=== PATIENT | female | born 1995 | race Caucasian/White ===

== ENCOUNTER 2023-11-12 17:41 | Observation (INO) | payer OTHER ==
[2023-11-12 17:56] VITALS: O2SAT 100
--- NOTE | 2023-11-12 18:06 | ED Physician Documentation ---
History of Present Illness - Stated complaint Stated Complaint: N/V/MCCLAIN - Chief complaint Chief Complaint: Abd Pain - History obtained from History obtained from: Patient - History of Present Illness Timing: Today Pain level max: 6 Pain level now: 6 - Additonal information Additional information: 28-year-old female states that she is 21 weeks . She is visiting from out of town. She states has had nausea and vomiting since last night. Took Reglan last night without relief. Has had similar symptoms in the past. Patient is a G2, P1. Does not drink alcohol, smoke or use marijuana. Patient does state that her potassium is chronically low. No vaginal bleeding or discharge. She states she does have a right-sided headache, dull, aching. She states similar to her usual migraine headaches. Not sudden onset. No fevers. No chills. No neck or back pain. Review of Systems Constitutional: denies: Fever, Chills Throat: denies: Sore throat Cardiac: denies: Chest pain / pressure, Palpitations Respiratory: denies: Dyspnea, Cough GI: reports: Nausea, Vomiting. denies: Diarrhea, Hematemesis, Bloody / black stool : denies: Dysuria, Frequency, Hesitancy Skin: denies: Rash Musculoskeletal: denies: Neck pain, Back pain Neurologic: denies: Focal weakness, Numbness, Headache PD PAST MEDICAL HISTORY - Past Medical History Past Medical History: No Cardiovascular: None Respiratory: None Neuro: None Endocrine/Autoimmune: None GI: GERD HEAD DOFFER: None : None HEENT: None Psych: None Musculoskeletal: None Derm: None - Past Surgical History Past Surgical History: Yes General: Appendectomy HEENT: Tonsil/Adenoidectomy - Present Medications Home Medications: Ambulatory Orders Medication Instructions Recorded Confirmed Acetaminophen [Tylenol] 1 tab PO DAILY 11/12/23 11/12/23 Metoclopramide [Reglan] 1 tab PO DAILY 11/12/23 11/12/23 - Allergies Allergies/Adverse Reactions: Allergies Allergy/AdvReac Type Severity Reaction Status Date / Time No Known Drug Allergies Allergy Verified 11/12/23 17:49 - Social History Does the pt smoke?: No Smoking Status: Never smoker Does the pt drink ETOH?: No Does the pt have substance abuse?: No - Immunizations Immunizations are current?: Yes - POLST Patient has POLST: No PD ED PE NORMAL - Vitals Vital signs reviewed: Yes - General General: Alert and oriented X 3, No acute distress - HEENT HEENT: Moist mucous membranes - Neck Neck: Supple, no meningeal sign - Cardiac Cardiac: RRR, Strong equal pulses - Respiratory Respiratory: No respiratory distress, Clear bilaterally - Abdomen Abdomen: Soft, Non tender, Non distended - Back Back: No CVA TTP, No spinal TTP - Derm Derm: Warm and dry, No rash - Extremities Extremities: No edema, No calf tenderness / cord - Neuro Neuro: Alert and oriented X 3 - Psych Psych: Normal mood, Normal affect Results - Vitals Vitals: Vital Signs - 24 hr 11/12/23 11/12/23 17:44 19:59 Temperature 36.8 C Heart Rate 100 103 H Respiratory 18 16 Rate Blood Pressure 120/85 H 125/69 O2 Saturation 100 100 Oxygen O2 Source Room air - Labs Labs: Laboratory Tests 11/12/23 11/12/23 11/12/23 18:02 18:02 18:02 WBC 12.8 H RBC 4.89 Hgb 11.7 L Hct 36.7 L MCV 75.1 L MCH 23.9 L MCHC 31.9 L RDW 14.5 Plt Count 375 MPV 10.4 Neut # (Auto) 9.8 H Lymph # (Auto) 2.3 [place] # (Auto) 0.6 Eos # (Auto) 0.0 Baso # (Auto) 0.0 Absolute Nucleated RBC 0.00 Nucleated RBC % 0.0 Sodium 136 Potassium 2.8 L Chloride 102 Carbon Dioxide 20 L Anion Gap 14.0 H BUN 5 L Creatinine 0.7 Estimated GFR (MDRD) 100 Glucose 112 H Calcium 9.3 Phosphorus 1.7 L Magnesium 1.5 L Total Bilirubin 0.5 AST 14 ALT 11 Alkaline Phosphatase 51 Total Protein 7.0 Albumin 3.8 Globulin 3.2 Albumin/Globulin Ratio 1.2 Lipase 50 Urine Color Urine Clarity Urine pH Ur Specific [place] Urine Protein Urine Glucose (UA) Urine Ketones Urine Occult Blood Urine Nitrite Urine Bilirubin Urine Urobilinogen Ur Leukocyte Esterase Ur Microscopic Review Urine Culture Comments 11/12/23 20:06 WBC RBC Hgb Hct MCV MCH MCHC RDW Plt Count MPV Neut # (Auto) Lymph # (Auto) [place] # (Auto) Eos # (Auto) Baso # (Auto) Absolute Nucleated RBC Nucleated RBC % Sodium Potassium Chloride Carbon Dioxide Anion Gap BUN Creatinine Estimated GFR (MDRD) Glucose Calcium Phosphorus Magnesium Total Bilirubin AST ALT Alkaline Phosphatase Total Protein Albumin Globulin Albumin/Globulin Ratio Lipase Urine Color YELLOW Urine Clarity CLEAR Urine pH 8.0 H Ur Specific [place] 1.025 Urine Protein TRACE Urine Glucose (UA) NEGATIVE Urine Ketones >=80 H Urine Occult Blood NEGATIVE Urine Nitrite NEGATIVE Urine Bilirubin NEGATIVE Urine Urobilinogen 0.2 (NORMAL) Ur Leukocyte Esterase NEGATIVE Ur Microscopic Review NOT INDICATED Urine Culture Comments NOT INDICATED PD Medical Decision Making - ED course Complexity details: reviewed results, re-evaluated patient, considered differential, d/w patient ED course: Bedside ultrasound reveals a heart rate of 152 bpm. Images were shown to the patient. Very active movement. 28-year-old female, 2, para 1 presents with vomiting. She has hypokalemia, hypomagnesemia. She was given IV Phenergan, Benadryl and IV Zofran. She attempted to drink water and had more emesis. Was given IV potassium and magnesium. As she cannot tolerate p.o. and does appear dehydrated along with electrolyte abnormalities, discussed the case with OB, Dr. Shrestha, accepts for observation. This document was made in part using voice recognition software. While efforts are made to proofread this document, sound alike and grammatical errors may occur. Departure - Departure Disposition: ED Place in Observation Clinical Impression: Hypokalemia, Hyperemesis arising during , Hypomagnesemia Vomiting Qualifiers: Vomiting type: unspecified Nausea presence: with nausea Qualified Code(s): R11.2 - Nausea with vomiting, unspecified Condition: Stable Forms: PCP List
[2023-11-12 18:20] LABS: BASOPHILS % (AUTO) 0.2 %; EOSINOPHILS % (AUTO) 0.3 %; HCT - HEMATOCRIT 36.7 % (37.0-47.0); HGB - HEMOGLOBIN 11.7 g/dL (12.0-16.0); LYMPHOCYTES # (AUTO) 2.3 10^3/uL (1.5-3.5); LYMPHOCYTES % (AUTO) 18.3 %; MEAN CORPUSCULAR HEMOGLOBIN 23.9 pg (27.0-31.0); MEAN CORPUSCULAR HGB CONC 31.9 g/dL (32.0-36.0); MEAN CORPUSCULAR VOLUME 75.1 fL (81.0-99.0); MEAN PLATELET VOLUME 10.4 fL (7.9-10.8); MONOCYTES # (AUTO) 0.6 10^3/uL (0.0-1.0); MONOCYTES % (AUTO) 4.4 %; NEUTROPHILS # (AUTO) 9.8 10^3/uL (1.5-6.6); NEUTROPHILS % (AUTO) 76.5 %; PLT - PLATELET COUNT 375 10^3/uL (130-450); RED BLOOD COUNT 4.89 10^6/uL (4.20-5.40); RED CELL DISTRIBUTION WIDTH 14.5 % (12.0-15.0); WHITE BLOOD COUNT 12.8 x10^3/uL (4.8-10.8)
[2023-11-12] MEDS ORDERED: PROMETHAZINE 25 MG/1 ML VIAL ONE (18:20)
[2023-11-12] MEDS: SODIUM CHLORIDE 0.9% 1,000 ML IV STA ×2 (18:25→20:45)
[2023-11-12] MEDS: PROMETHAZINE INJ 25 MG in SODIUM CHLORIDE 0.9% 50 ML IV STA (18:25)
[2023-11-12] MEDS: diphenhydrAMINE INJ 50 MG/ML VIAL IVP STA (18:25)
[2023-11-12 18:40] LABS: ALBUMIN 3.8 g/dL (3.2-5.5); ALBUMIN/GLOBULIN RATIO 1.2 (1.0-2.2); BILIRUBIN,TOTAL 0.5 mg/dL (0.2-1.0); CALCIUM 9.3 mg/dL (8.5-10.3); CREATININE 0.7 mg/dL (0.6-1.3); POTASSIUM 2.8 mmol/L (3.5-4.5)
[2023-11-12 19:13] LABS: MAGNESIUM 1.5 mg/dL (1.7-2.3); PHOSPHORUS 1.7 mg/dL (2.5-5.0)
[2023-11-12] MEDS: MAGNESIUM SULFATE 2 GRAM 2 GM/50 ML BAG IV ONE (19:37)
[2023-11-12] MEDS: POTASSIUM BICARB 25 MEQ TABLET PO STA (19:37)
[2023-11-12] MEDS: ONDANSETRON 4 MG/2 ML VIAL IVP STA (20:08)
[2023-11-12 20:12] LABS: BILIRUBIN,URINE NEGATIVE (NEGATIVE); GLUCOSE, URINE (UA) NEGATIVE (NEGATIVE); KETONES,URINE (UA) >=80 mg/dL (NEGATIVE); LEUKOCYTE ESTERASE, URINE NEGATIVE (NEGATIVE); NITRITE,URINE NEGATIVE (NEGATIVE); OCCULT BLOOD,URINE NEGATIVE (NEGATIVE); PROTEIN,URINE TRACE mg/dL (NEGATIVE); UROBILINOGEN,URINE 0.2 (NORMAL) E.U./dL (NORMAL)
[2023-11-12 20:18] LABS: CLARITY,URINE CLEAR (CLEAR)
[2023-11-12] MEDS: POTASSIUM CHLOR 10 MEQ/100 ML 10 MEQ/100 ML BAG IV STA (20:47)
--- NOTE | 2023-11-12 21:30 | HISTORY & PHYSICAL EXAMINATION ---
HPI - Admitted From Admitted from: ED - History Obtained From History obtained from: Patient Exam limitations: No limitations - History of Present Illness Pain/Problem Location Description: vomiting since yesterday. 21 weeks HPI Comment/Other: patient is 21 weeks with her second child. Unable to keep any food down all day. She is visiting 's mom who lives in [place] for 3 weeks moving from [facility] with [employer]. last visit 1 week ago. no complications. does have h/o migraines. H/O episodes of 24 hrs or so of vomiting. last over a year ago. So this is first time during this . She has reglan at home to take for migraines. did not help. Does not feel like a migraine to her. Feeling quite miserable. Other child is 4 yo. did not have hyperemesis with that or this one. Just today. not complicated. denies any substance use. medications: tylenol, reglan, omeprazole. PMH/PSH - Past Medical History Cardiovascular: positive: None Respiratory: positive: None Neuro: positive: None, Migraines Endocrine/Autoimmune: positive: None GI: positive: GERD DIRECTOR VALIDATION: positive: None : positive: None HEENT: positive: None Psych: positive: None Musculoskeletal: positive: None Derm: positive: None MRSA Hx?: No - Past Surgical History General: positive: Appendectomy HEENT: positive: Tonsil/Adenoidectomy Social & Family Hx - Living Situation Living Arrangement: At home Living Situation: With spouse/s.o. - Social History Does the pt smoke?: No Smoking Status: Never smoker Does the pt drink ETOH?: No Does the pt have substance abuse?: No - POLST Patient has POLST: No Meds/Allgy - Home Medications Home Medications: Ambulatory Orders Medication Instructions Recorded Confirmed Acetaminophen [Tylenol] 1 tab PO DAILY 11/12/23 11/12/23 Metoclopramide [Reglan] 1 tab PO DAILY 11/12/23 11/12/23 - Allergies Allergies/Adverse Reactions: Allergies Allergy/AdvReac Type Severity Reaction Status Date / Time No Known Drug Allergies Allergy Verified 11/12/23 17:49 Review of Systems - Constitutional Constitutional: reports: Fatigue - Gastrointestinal Gastrointestinal: reports: Nausea, Vomiting Exam - Vital Signs Reviewed Vital Signs: Yes Vital Signs: Vital Signs x48h Temp Pulse Resp BP Pulse Ox 11/12/23 21:22 105 H 16 134/83 H 100 11/12/23 19:59 103 H 16 125/69 100 11/12/23 17:44 98.2 F 100 18 120/85 H 100 - Physical Exam General Appearance: positive: Mild distress, Other (physically moving around alot on the bed. can't sit still. ? from the reglan. denies other drug use.) Cardiovascular: positive: Regular rate & rhythm Abdomen: positive: Other (gravid. US shows live iup. active.) Skin: positive: Color nml Extremities: positive: Non-tender, Pedal edema (maybe mild) Neurologic/Psychiatric: positive: Oriented x3 Results - Lab Results Fish Bones: 11/12/23 18:02 11/12/23 18:02 Other Lab Results: Lab Results x24hrs 11/12/23 11/12/23 11/12/23 Range/Units 20:06 18:02 18:02 WBC (4.8-10.8) x10^3/uL RBC (4.20-5.40) 10^6/uL Hgb (12.0-16.0) g/dL Hct (37.0-47.0) % MCV (81.0-99.0) fL MCH (27.0-31.0) pg MCHC (32.0-36.0) g/dL RDW (12.0-15.0) % Plt Count (130-450) 10^3/uL MPV (7.9-10.8) fL Neut # (Auto) (1.5-6.6) 10^3/uL Lymph # (Auto) (1.5-3.5) 10^3/uL [place] # (Auto) (0.0-1.0) 10^3/uL Eos # (Auto) (0.0-0.7) 10^3/uL Baso # (Auto) (0.0-0.1) 10^3/uL Absolute Nucleated RBC x10^3/uL Nucleated RBC % /100WBC Sodium 136 (135-145) mmol/L Potassium 2.8 L (3.5-4.5) mmol/L Chloride 102 (101-111) mmol/L Carbon Dioxide 20 L (21-32) mmol/L Anion Gap 14.0 H (6-13) BUN 5 L (6-20) mg/dL Creatinine 0.7 (0.6-1.3) mg/dL Estimated GFR (MDRD) 100 (>89) Glucose 112 H (74-104) mg/dL Calcium 9.3 (8.5-10.3) mg/dL Phosphorus 1.7 L (2.5-5.0) mg/dL Magnesium 1.5 L (1.7-2.3) mg/dL Total Bilirubin 0.5 (0.2-1.0) mg/dL AST 14 (10-42) IU/L ALT 11 (10-60) IU/L Alkaline Phosphatase 51 (42-121) IU/L Total Protein 7.0 (6.4-8.9) g/dL Albumin 3.8 (3.2-5.5) g/dL Globulin 3.2 (2.1-4.2) g/dL Albumin/Globulin Ratio 1.2 (1.0-2.2) Lipase 50 (11-82) U/L Urine Color YELLOW Urine Clarity CLEAR (CLEAR) Urine pH 8.0 H (5.0-7.5) PH Ur Specific [place] 1.025 (1.002-1.030) Urine Protein TRACE (NEGATIVE) mg/dL Urine Glucose (UA) NEGATIVE (NEGATIVE) mg/dL Urine Ketones >=80 H (NEGATIVE) mg/dL Urine Occult Blood NEGATIVE (NEGATIVE) Urine Nitrite NEGATIVE (NEGATIVE) Urine Bilirubin NEGATIVE (NEGATIVE) Urine Urobilinogen 0.2 (NORMAL) (NORMAL) E.U./dL Ur Leukocyte Esterase NEGATIVE (NEGATIVE) Ur Microscopic Review NOT INDICATED Urine Culture Comments NOT INDICATED 11/12/23 Range/Units 18:02 WBC 12.8 H (4.8-10.8) x10^3/uL RBC 4.89 (4.20-5.40) 10^6/uL Hgb 11.7 L (12.0-16.0) g/dL Hct 36.7 L (37.0-47.0) % MCV 75.1 L (81.0-99.0) fL MCH 23.9 L (27.0-31.0) pg MCHC 31.9 L (32.0-36.0) g/dL RDW 14.5 (12.0-15.0) % Plt Count 375 (130-450) 10^3/uL MPV 10.4 (7.9-10.8) fL Neut # (Auto) 9.8 H (1.5-6.6) 10^3/uL Lymph # (Auto) 2.3 (1.5-3.5) 10^3/uL [place] # (Auto) 0.6 (0.0-1.0) 10^3/uL Eos # (Auto) 0.0 (0.0-0.7) 10^3/uL Baso # (Auto) 0.0 (0.0-0.1) 10^3/uL Absolute Nucleated RBC 0.00 x10^3/uL Nucleated RBC % 0.0 /100WBC Sodium (135-145) mmol/L Potassium (3.5-4.5) mmol/L Chloride (101-111) mmol/L Carbon Dioxide (21-32) mmol/L Anion Gap (6-13) BUN (6-20) mg/dL Creatinine (0.6-1.3) mg/dL Estimated GFR (MDRD) (>89) Glucose (74-104) mg/dL Calcium (8.5-10.3) mg/dL Phosphorus (2.5-5.0) mg/dL Magnesium (1.7-2.3) mg/dL Total Bilirubin (0.2-1.0) mg/dL AST (10-42) IU/L ALT (10-60) IU/L Alkaline Phosphatase (42-121) IU/L Total Protein (6.4-8.9) g/dL Albumin (3.2-5.5) g/dL Globulin (2.1-4.2) g/dL Albumin/Globulin Ratio (1.0-2.2) Lipase (11-82) U/L Urine Color Urine Clarity (CLEAR) Urine pH (5.0-7.5) PH Ur Specific [place] (1.002-1.030) Urine Protein (NEGATIVE) mg/dL Urine Glucose (UA) (NEGATIVE) mg/dL Urine Ketones (NEGATIVE) mg/dL Urine Occult Blood (NEGATIVE) Urine Nitrite (NEGATIVE) Urine Bilirubin (NEGATIVE) Urine Urobilinogen (NORMAL) E.U./dL Ur Leukocyte Esterase (NEGATIVE) Ur Microscopic Review Urine Culture Comments Impression/Plan - Problem List Problem List: 21 weeks with n/v resulting in hypokalemia and hypomagnesemia. will admit for hydration, medical management of nausea, replacement of electrolytes. hopefully will be able to discharge in am. I attest she will be discharged or transfered within 96 hours.
[2023-11-12] MEDS: PROCHLORPERAZINE 10 MG/2 ML VIAL IVP PRN (23:26)
[2023-11-12 23:41] LABS: CALCIUM 8.4 mg/dL (8.5-10.3); CREATININE 0.5 mg/dL (0.6-1.3); MAGNESIUM 1.8 mg/dL (1.7-2.3); POTASSIUM 3.2 mmol/L (3.5-4.5)
[2023-11-13] MEDS: D5NS W/20 MEQ KCL 1,000 ML IV SCH (00:03)
[2023-11-13] MEDS: ONDANSETRON 4 MG/2 ML VIAL IVP PRN (02:00)
[2023-11-13] MEDS: FAMOTIDINE 20 MG/2 ML VIAL IVP SCH (04:46)
[2023-11-13 06:34] LABS: MAGNESIUM 1.8 mg/dL (1.7-2.3)
[2023-11-13 06:40] LABS: CALCIUM 7.9 mg/dL (8.5-10.3); CREATININE 0.6 mg/dL (0.6-1.3); POTASSIUM 3.4 mmol/L (3.5-4.5)
--- NOTE | 2023-11-13 08:48 | DISCHARGE SUMMARY ---
Discharge Summary Admit Date: 11/12/23 Discharge Date: 11/13/23 Discharging Provider: Emilio Busby MD Code Status: Attempt Resuscitation Condition at Discharge: Good Discharge Disposition: 01 Home, Self Care - DIAGNOSES Admission Diagnoses: Nausea vomiting Gastroenteritis Hypokalemia Discharge Diagnoses with Status of Each Condition: Nausea vomiting : Improved Gastroenteritis: Improved Hypokalemia: Resolved - HPI History of Present Illness: Patient doing very well this morning. 1 episode of vomiting overnight, but tolerating p.o. this morning. Feeling much better. Eager to go home. Physical Exam Constitutional: alert, no acute distress, well hydrated, well developed, well nourished, appropriate dress. Cardiovascular: Regular rate and rhythm. Respiratory: no respiratory distress. Abdomen: nondistended, nontender, no guarding. Psych: affect and mood appropriate, normal interaction, good eye contact. - HOSPITAL COURSE Hospital Course: Patient was admitted for hypokalemia after nausea and vomiting in . [place], and is moving to [place] soon. She does not have an OB provider currently and cannot establish there until she arrives. Is staying with her [id number] and Maximo. She came to the hospital for nausea and vomiting control. She received antiemetics and electrolyte replacement and feels much better today. She is tolerating p.o. foods and was discharged in good condition with antiemetic prescription. Can follow-up with us in clinic if she desires, or follow-up with new OB provider in [place]. - ALLERGIES Allergies/Adverse Reactions: Allergies Allergy/AdvReac Type Severity Reaction Status Date / Time No Known Drug Allergies Allergy Verified 11/12/23 17:49 - MEDICATIONS Home Medications: Ambulatory Orders Medication Instructions Recorded Confirmed Acetaminophen [Tylenol] 1 tab PO DAILY 11/12/23 11/12/23 Metoclopramide [Reglan] 1 tab PO DAILY 11/12/23 11/12/23 Ondansetron Odt [Zofran Odt] 4 mg TL Q6H PRN #20 tablet 11/13/23 Prochlorperazine [Compazine] 5 mg PO Q6H #10 tablet 11/13/23 - LABS Result Diagrams: 11/12/23 18:02 11/13/23 06:04 - FOLLOW UP Follow Up: With [facility] or with new provider. - TIME SPENT Time Spent in Discharge (Minutes): 20
--- NOTE | 2023-11-13 09:23 | Discharge Plan ---
Discharge Plan Problem Reviewed?: Yes Disposition: Home, Self Care Prescriptions: Prochlorperazine [Compazine] 5 mg PO Q6H #10 tablet Ondansetron Odt [Zofran Odt] 4 mg TL Q6H PRN #20 tablet PRN Reason: Nausea / Vomiting Diet: Regular (as tolerated) Activity Restrictions: Activity as Tolerated Shower Restrictions: No Driving Restrictions: No Instruction Topics: ED Nausea Vomiting No Smoking: If you smoke, Please STOP! Call for help. Follow-up with: Emilio Busby MD [Provider Admit Priv/Credential] -
[2023-11-13] MEDS ORDERED: ACETAMINOPHEN 500 MG TABLET PO PRN (09:35)
[2023-11-13 10:43] VITALS: BP 127/86
== END 2023-11-13 10:45 | disposition home or self-care (01) ==
LOC: ED 17:41 → FBP 20:45
PROVIDERS: ADMIT Obstetrics & Gynecology; ATTEND Obstetrics & Gynecology
DX: O21.2 Late vomiting of pregnancy (principal); Z3A.21 21 weeks gestation of pregnancy; O99.612 Diseases of the digestive system complicating pregnancy, second trimester; K52.9 Noninfective gastroenteritis and colitis, unspecified; O99.282 Endocrine, nutritional and metabolic diseases complicating pregnancy, second trimester; E83.42 Hypomagnesemia; E87.6 Hypokalemia; O26.892 Other specified pregnancy related conditions, second trimester; R51.9 Headache, unspecified
CPT/HCPCS: 36415; 80048; 80053; 81003; 83690; 83735; 84100; 85025; 96365; 96366; 96367; 96375; 96376; 99284; 99285; A9270; G0378; J1200; J7040; 81001; 87086

== ENCOUNTER 2023-11-16 18:41 | Outpatient (CLI) | payer OTHER ==
[2023-11-16 19:02] VITALS: BP 120/78
== END 2023-11-16 19:15 ==
LOC: WFO 18:41 → FBP 18:43 → WFO 19:15
PROVIDERS: ATTEND Obstetrics & Gynecology
DX: Z53.9 Procedure and treatment not carried out, unspecified reason (principal)

== ENCOUNTER 2023-11-16 19:13 | Emergency (ER) | payer OTHER ==
--- NOTE | 2023-11-16 20:03 | ED Physician Documentation ---
History of Present Illness - Stated complaint Stated Complaint: N/V - Chief complaint Chief Complaint: Abd Pain - Additonal information Additional information: 28-year-old female 22 weeks presents emergency department for persistent nausea vomiting. Patient was recently hospitalized for hyperemesis gravidarum here at [facility]. She was sent home with multiple different antiemetics which she reports is been helping but since about 10:00 last night she started to experience persistent nausea and vomiting again she said that she is been vomiting about once every hour and she is to the point where she is very sleep deprived because of the persistent nausea. She says her main concern is that she has got a lot of acid reflux which is what causes her to throw up. She says that she is vomiting up brown/green bile and she is unable to keep anything down. She says in comparison to when she was recently here for hospitalization she actually feels better but her main concern is this ongoing persistent acid reflux. She has been taking her omeprazole that is been prescribed to her but she feels little to no relief. 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 : None HEENT: None Psych: None Musculoskeletal: None Derm: None - Past Surgical History Past Surgical History: Yes General: Appendectomy HEENT: Tonsil/Adenoidectomy - Present Medications Home Medications: Ambulatory Orders Medication Instructions Recorded Confirmed Acetaminophen [Tylenol] 1 tab PO DAILY 11/12/23 11/16/23 Metoclopramide [Reglan] 1 tab PO DAILY 11/12/23 11/16/23 Ondansetron Odt [Zofran Odt] 4 mg TL Q6H PRN #20 tablet 11/13/23 11/16/23 Prochlorperazine [Compazine] 5 mg PO Q6H #10 tablet 11/13/23 11/16/23 Famotidine [Acid-Pep] 20 mg PO BID 30 Days #60 tablet 11/16/23 Omeprazole 20 mg PO DAILY PRN 11/16/23 11/16/23 Sucralfate [Carafate] 1 gm PO QID PRN #100 ml 11/16/23 - Allergies Allergies/Adverse Reactions: Allergies Allergy/AdvReac Type Severity Reaction Status Date / Time No Known Drug Allergies Allergy Verified 11/16/23 19:17 - Social History Does the pt smoke?: No Smoking Status: Never smoker Does the pt drink ETOH?: No Does the pt have substance abuse?: No - Immunizations Immunizations are current?: Yes - POLST Patient has POLST: No PD ED PE NORMAL - Vitals Vital signs reviewed: Yes - General General: Alert and oriented X 3, No acute distress, Well developed/nourished - HEENT HEENT: Atraumatic - Cardiac Cardiac: RRR - Respiratory Respiratory: No respiratory distress, Clear bilaterally - Abdomen Abdomen: Normal bowel sounds, Soft, Non tender, Other (22 weeks ) - Back Back: No CVA TTP - Derm Derm: Normal color, Warm and dry, No rash - Extremities Extremities: No edema - Neuro Neuro: Alert and oriented X 3, terrazzo worker helper 2-12 intact, No motor deficit, No sensory deficit, Normal speech - Psych Psych: Normal mood Results - Vitals Vitals: Vital Signs - 24 hr 11/16/23 11/16/23 11/16/23 19:17 19:52 21:07 Temperature 36.6 C 36.4 C L Heart Rate 83 84 86 Respiratory 16 16 100 H Rate Blood Pressure 140/88 H 118/74 136/94 H O2 Saturation 100 100 11/16/23 11/16/23 21:25 22:05 Temperature 36.9 C Heart Rate 100 87 Respiratory 16 16 Rate Blood Pressure 137/98 H 130/92 H O2 Saturation 99 99 Oxygen O2 Source Room air - Labs Labs: Laboratory Tests 11/16/23 11/16/23 11/16/23 20:06 20:06 21:02 WBC 16.2 H RBC 4.48 Hgb 11.2 L Hct 34.1 L MCV 76.1 L MCH 25.0 L MCHC 32.8 RDW 14.5 Plt Count 348 MPV 10.1 Neut # (Auto) 12.6 H Lymph # (Auto) 2.6 [place] # (Auto) 0.9 Eos # (Auto) 0.0 Baso # (Auto) 0.0 Absolute Nucleated RBC 0.00 Nucleated RBC % 0.0 Sodium 135 Potassium 3.0 L Chloride 103 Carbon Dioxide 25 Anion Gap 7.0 BUN 7 Creatinine 0.5 L Estimated GFR (MDRD) 148 Glucose 97 Calcium 8.6 Magnesium 1.6 L Total Bilirubin 0.4 AST 13 ALT 10 Alkaline Phosphatase 42 Total Protein 5.9 L Albumin 3.6 Globulin 2.3 Albumin/Globulin Ratio 1.6 Lipase 30 Urine Color YELLOW Urine Clarity CLEAR Urine pH 8.5 H Ur Specific [place] 1.015 Urine Protein NEGATIVE Urine Glucose (UA) NEGATIVE Urine Ketones >=80 H Urine Occult Blood NEGATIVE Urine Nitrite NEGATIVE Urine Bilirubin NEGATIVE Urine Urobilinogen 0.2 (NORMAL) Ur Leukocyte Esterase TRACE H Urine RBC None Seen Urine WBC 0-3 Ur Squamous Epith Cells MOD Squamous H Urine Bacteria None Seen Ur Microscopic Review INDICATED Urine Culture Comments NOT INDICATED PD Medical Decision Making - ED course ED course: 28-year-old female with acid reflux and persistent nausea vomiting. Labs were collected while she was here she does have leukocytosis, WBC 16.2 which is up in comparison to her last hospitalization earlier this week. Hemoglobin 11.2, hematocrit 34.1, neutrophils slightly elevated at 12.6. Hypokalemia is present again at 3.0, creatinine 0.5, magnesium 1.6. She was given 50 mg IV magnesium for replacement and 40 mEq of potassium for oral replacement. Urinalysis is positive for leukocytes with moderate amount of squamous epithelial cells. Patient denies any dysuria or flank pain given the moderate amount of squamous cells I do not believe that patient is experiencing a urinary tract infection. I spoke with CLOTHING BUSHELER Dr. Busby who is on-call, he is very familiar with the patient he said if we are able to try and control her nausea and vomiting in the emergency department that he would feel comfortable with her going home as this is what patient wanted. Patient was given cotton ball machine tender fate here in the emergency department this is safe for woman patient reports that this is provided a significant amount of alleviation in her acid reflux she is also given some famotidine which she also reports significantly helped with her acid reflux symptoms as well as her nausea. She is able to tolerate p.o.'s prior to leaving she received 1 L of IV fluids. Her blood pressure is on the slightly elevated side there is no protein in her urine. She was told to closely monitor this at home as she is technically within the window for preeclampsia she understands very strict return precautions she said that she would like to discharge home not like to be admitted and is feeling significantly better patient was told to discontinue omeprazole and to start on famotidine twice a day as well as Carafate and this was sent to her preferred pharmacy. Departure - Departure Disposition: Home, Self Care Clinical Impression: Hyperemesis arising during , Hypokalemia, Hypomagnesemia Acid reflux Qualifiers: Esophagitis presence: with esophagitis Esophagitis bleeding: without hemorrhage Qualified Code(s): K21.00 - Gastro-esophageal reflux disease with esophagitis, without bleeding Instructions: Tips Control Acid Reflux, GERD Dc Prescriptions: Famotidine [Acid-Pep] 20 mg PO BID 30 Days #60 tablet Sucralfate [Carafate] 1 gm PO QID PRN #100 ml PRN Reason: Abdominal Pain Comments: Thank you for trusting us with your care. I want you to discontinue the Prilosec/omeprazole that you were recently prescribed and start taking famotidine twice a day. I sent this prescription to your preferred pharmacy on file. I have also prescribed you some Carafate that he will take this up to 4 times a day for your acid reflux symptoms. Make sure that you are eating small frequent meals throughout the day to avoid your hyperemesis gravidarum. Your blood pressure is borderline so want you to check it once a day at home when you are in a comfortable spot. If you starting develop worsening hypertension please come back to the emergency department please also keep an eye out for headaches, facial swelling, hand swelling, leg swelling and have low threshold come back to to the emergency department for further evaluation. Forms: PCP List Discharge Date/Time: 11/16/23 22:10
[2023-11-16 20:15] LABS: BASOPHILS % (AUTO) 0.2 %; HCT - HEMATOCRIT 34.1 % (37.0-47.0); HGB - HEMOGLOBIN 11.2 g/dL (12.0-16.0); LYMPHOCYTES # (AUTO) 2.6 10^3/uL (1.5-3.5); LYMPHOCYTES % (AUTO) 16.2 %; MEAN CORPUSCULAR HGB CONC 32.8 g/dL (32.0-36.0); MEAN CORPUSCULAR VOLUME 76.1 fL (81.0-99.0); MEAN PLATELET VOLUME 10.1 fL (7.9-10.8); MONOCYTES # (AUTO) 0.9 10^3/uL (0.0-1.0); MONOCYTES % (AUTO) 5.3 %; NEUTROPHILS # (AUTO) 12.6 10^3/uL (1.5-6.6); NEUTROPHILS % (AUTO) 77.9 %; PLT - PLATELET COUNT 348 10^3/uL (130-450); RED BLOOD COUNT 4.48 10^6/uL (4.20-5.40); RED CELL DISTRIBUTION WIDTH 14.5 % (12.0-15.0); WHITE BLOOD COUNT 16.2 x10^3/uL (4.8-10.8)
[2023-11-16] MEDS: SODIUM CHLORIDE 0.9% 1,000 ML IV ONE (20:20)
[2023-11-16] MEDS: FAMOTIDINE 20 MG TABLET PO STA (20:30)
[2023-11-16] MEDS: SUCRALFATE 1 GM/10 ML UDC PO STA (20:30)
[2023-11-16 20:33] LABS: MAGNESIUM 1.6 mg/dL (1.7-2.3)
[2023-11-16 20:39] LABS: ALBUMIN 3.6 g/dL (3.2-5.5); ALBUMIN/GLOBULIN RATIO 1.6 (1.0-2.2); BILIRUBIN,TOTAL 0.4 mg/dL (0.2-1.0); CALCIUM 8.6 mg/dL (8.5-10.3); CREATININE 0.5 mg/dL (0.6-1.3); TOTAL PROTEIN 5.9 g/dL (6.4-8.9)
[2023-11-16 21:21] LABS: BILIRUBIN,URINE NEGATIVE (NEGATIVE); GLUCOSE, URINE (UA) NEGATIVE (NEGATIVE); KETONES,URINE (UA) >=80 mg/dL (NEGATIVE); LEUKOCYTE ESTERASE, URINE TRACE (NEGATIVE); NITRITE,URINE NEGATIVE (NEGATIVE); OCCULT BLOOD,URINE NEGATIVE (NEGATIVE); PH,URINE 8.5 PH (5.0-7.5); PROTEIN,URINE NEGATIVE (NEGATIVE); UROBILINOGEN,URINE 0.2 (NORMAL) E.U./dL (NORMAL)
[2023-11-16 21:23] LABS: CLARITY,URINE CLEAR (CLEAR)
[2023-11-16] MEDS: MAGNESIUM OXIDE 400 MG TABLET PO STA (21:24)
[2023-11-16] MEDS: POTASSIUM CHLORIDE 20 MEQ TABLET PO STA (21:25)
[2023-11-16 21:27] VITALS: O2SAT 99
[2023-11-16 21:38] LABS: BACTERIA,URINE None Seen /HPF (None Seen); RBC,URINE None Seen /HPF (0-5); SQUAMOUS EPITHELIAL CELL,UR MOD Squamous (<= Few); WBC,URINE 0-3 /HPF (0-5)
[2023-11-16 22:21] VITALS: BP 130/92
== END 2023-11-16 22:10 | disposition home or self-care (01) ==
LOC: ED 19:13
DX: O99.612 Diseases of the digestive system complicating pregnancy, second trimester (principal); K21.00 Gastro-esophageal reflux disease with esophagitis, without bleeding; Z3A.22 22 weeks gestation of pregnancy
CPT/HCPCS: 36415; 80053; 81001; 83690; 83735; 85025; 96360; 99283; 99284; A9270; 81003; 87086

== ENCOUNTER 2023-11-22 08:36 | Emergency (ER) | payer OTHER ==
[2023-11-22 09:01] VITALS: O2SAT 100
[2023-11-22 09:15] LABS: BASOPHILS % (AUTO) 0.1 %; HCT - HEMATOCRIT 33.4 % (37.0-47.0); HGB - HEMOGLOBIN 10.8 g/dL (12.0-16.0); LYMPHOCYTES # (AUTO) 1.3 10^3/uL (1.5-3.5); LYMPHOCYTES % (AUTO) 9.1 %; MEAN CORPUSCULAR HEMOGLOBIN 24.7 pg (27.0-31.0); MEAN CORPUSCULAR HGB CONC 32.3 g/dL (32.0-36.0); MEAN CORPUSCULAR VOLUME 76.3 fL (81.0-99.0); MEAN PLATELET VOLUME 10.3 fL (7.9-10.8); MONOCYTES # (AUTO) 0.2 10^3/uL (0.0-1.0); MONOCYTES % (AUTO) 1.7 %; NEUTROPHILS # (AUTO) 12.3 10^3/uL (1.5-6.6); NEUTROPHILS % (AUTO) 88.7 %; PLT - PLATELET COUNT 322 10^3/uL (130-450); RED BLOOD COUNT 4.38 10^6/uL (4.20-5.40); RED CELL DISTRIBUTION WIDTH 14.4 % (12.0-15.0); WHITE BLOOD COUNT 13.9 x10^3/uL (4.8-10.8)
--- NOTE | 2023-11-22 09:15 | ED Physician Documentation ---
PD HPI NVD - Stated complaint Stated Complaint: N/V - Chief complaint Chief Complaint: Abd Pain - History obtained from History obtained from: Patient - History of Present Illness Timing - onset: Today, Last night Timing - details: Gradual onset, Still present Associated symptoms: Abdominal pain (intermittent epigastic). No: Fever, Hematemesis, Near syncope / syncope, Dysuria, Vaginal bleeding Contributing factors: Other ( at 22 weeks. 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 [place] [facility] with visits so far with normal per pt.). No: Sick contact, Bad food Improved by: No: Eating, Vomiting Worsened by: Eating Similar symptoms before: Diagnosis (presumed hyperemesis of , but had rather mild first trimester. Much more symptoms the past 1-2 months.) Recently seen: Emergency Dept Review of Systems Constitutional: denies: Fever, Chills Nose: denies: Rhinorrhea / runny nose, Congestion Throat: denies: Sore throat Respiratory: denies: Cough GI: reports: Abdominal Pain (intermittent with eating foods and vomiting.), Nausea, Vomiting. denies: Abdominal Swelling, Diarrhea Neurologic: reports: Generalized weakness. denies: Near syncope PD PAST MEDICAL HISTORY - Past Medical History Past Medical History: Yes Cardiovascular: None Respiratory: None Neuro: None, Migraines Endocrine/Autoimmune: None GI: [facility]: None : None HEENT: None Psych: None Musculoskeletal: None Derm: None - Past Surgical History Past Surgical History: Yes General: Appendectomy HEENT: Tonsil/Adenoidectomy - Present Medications Home Medications: Ambulatory Orders Medication Instructions Recorded Confirmed Acetaminophen [Tylenol] 1 tab PO DAILY 11/12/23 11/22/23 Metoclopramide [Reglan] 1 tab PO DAILY 11/12/23 11/16/23 Ondansetron Odt [Zofran Odt] 4 mg TL Q6H PRN #20 tablet 11/13/23 11/22/23 Prochlorperazine [Compazine] 5 mg PO Q6H #10 tablet 11/13/23 11/22/23 Famotidine [Acid-Pep] 20 mg PO BID 30 Days #60 tablet 11/16/23 11/22/23 Omeprazole 20 mg PO DAILY PRN 11/16/23 11/16/23 Sucralfate [Carafate] 1 gm PO QID PRN #100 ml 11/16/23 11/22/23 Magnesium Oxide [Mag Ox] 400 mg PO DAILY #30 tablet 11/22/23 Prochlorperazine Supp [Compazine 25 mg NJ Q6H PRN #15 supp 11/22/23 Supp] Prochlorperazine [Compazine] 5 mg PO Q6H PRN #30 tablet 11/22/23 - Allergies Allergies/Adverse Reactions: Allergies Allergy/AdvReac Type Severity Reaction Status Date / Time No Known Drug Allergies Allergy Verified 11/22/23 08:48 - Social History Does the pt smoke?: No Smoking Status: Never smoker Does the pt drink ETOH?: No Does the pt have substance abuse?: No - Immunizations Immunizations are current?: Yes - POLST Patient has POLST: No PD ED PE NORMAL - Vitals Vital signs reviewed: Yes - General General: Alert and oriented X 3, Well developed/nourished, Other (appears uncomfortable, leaning over and holding emesis bag. Some wretching at times. ) - HEENT HEENT: Pharynx benign. No: Moist mucous membranes - Neck Neck: Supple, no meningeal sign, No adenopathy - Cardiac Cardiac: No murmur. No: RRR (regular but tachycardic) - Respiratory Respiratory: No respiratory distress, Clear bilaterally - Abdomen Abdomen: Soft, Non tender (minimal local tender without guarding at epigastric area. Not tender RUQ. ) Results - Vitals Vitals: Vital Signs - 24 hr 11/22/23 11/22/23 11/22/23 10:54 12:00 12:47 Temperature 36.4 C L 36.4 C L Heart Rate 104 H 100 100 Respiratory 15 17 17 Rate Blood Pressure 138/83 H 137/93 H 137/93 H O2 Saturation 100 100 100 Oxygen O2 Source Room air - Labs Labs: Laboratory Tests 11/22/23 11/22/23 11/22/23 09:05 09:05 09:05 WBC 13.9 H RBC 4.38 Hgb 10.8 L Hct 33.4 L MCV 76.3 L MCH 24.7 L MCHC 32.3 RDW 14.4 Plt Count 322 MPV 10.3 Neut # (Auto) 12.3 H Lymph # (Auto) 1.3 L [place] # (Auto) 0.2 Eos # (Auto) 0.0 Baso # (Auto) 0.0 Absolute Nucleated RBC 0.00 Nucleated RBC % 0.0 Sodium 135 Potassium 3.2 L Chloride 102 Carbon Dioxide 23 Anion Gap 10.0 BUN 7 Creatinine 0.6 Estimated GFR (MDRD) 120 Glucose 121 H Calcium 9.0 Phosphorus 2.3 L Magnesium 1.5 L Total Bilirubin 0.3 AST 12 ALT 12 Alkaline Phosphatase 42 Total Protein 6.4 Albumin 3.5 Globulin 2.9 Albumin/Globulin Ratio 1.2 Lipase 48 Urine Color Urine Clarity Urine pH Ur Specific [place] Urine Protein Urine Glucose (UA) Urine Ketones Urine Occult Blood Urine Nitrite Urine Bilirubin Urine Urobilinogen Ur Leukocyte Esterase Urine RBC Urine WBC Ur Squamous Epith Cells Amorphous Sediment Urine Bacteria Urine Mucus Ur Microscopic Review Urine Culture Comments 11/22/23 10:30 WBC RBC Hgb Hct MCV MCH MCHC RDW Plt Count MPV Neut # (Auto) Lymph # (Auto) [place] # (Auto) Eos # (Auto) Baso # (Auto) Absolute Nucleated RBC Nucleated RBC % Sodium Potassium Chloride Carbon Dioxide Anion Gap BUN Creatinine Estimated GFR (MDRD) Glucose Calcium Phosphorus Magnesium Total Bilirubin AST ALT Alkaline Phosphatase Total Protein Albumin Globulin Albumin/Globulin Ratio Lipase Urine Color YELLOW Urine Clarity CLOUDY Urine pH 8.5 H Ur Specific [place] 1.010 Urine Protein 100 H Urine Glucose (UA) NEGATIVE Urine Ketones >=80 H Urine Occult Blood NEGATIVE Urine Nitrite NEGATIVE Urine Bilirubin NEGATIVE Urine Urobilinogen 0.2 (NORMAL) Ur Leukocyte Esterase TRACE H Urine RBC 0-5 Urine WBC 11-25 H Ur Squamous Epith Cells MANY Squamous H Amorphous Sediment Marked Urine Bacteria Many H Urine Mucus Marked Strands Ur Microscopic Review INDICATED Urine Culture Comments NOT INDICATED PD Medical Decision Making - ED course Complexity details: reviewed results (lytes shoiwng low K at 3.2 and Mag at 1.4. Given Mag supplement. IV K can burn and is not too low and did not want to upset her stomach with PO K. Can add dietary K at home. Mag is more important with the too and easy IV initial. ), re-evaluated patient (improved with IV fluids and meds. Given Zofran and COmpazine. Also Famotiidine as the repetitive vomiting likely causing an ongoing gastritis. 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 She did not have to go BM here today. She was eeling improved and wanting diacharge), considered differential (having recurrent hyperemesis. Presumed related to and is on Vit B6, antiemetics of various. Has baseline nausea last several weeks. Episodes of persistent/repetitive vomiting for which seen in ED. severe NV again last evening into today. Not tender RUQ and has normal lipase and LFTs. ), d/w patient, other (nursing did bedside FHT and were good. ) Departure - Departure Disposition: 01 Home, Self Care Clinical Impression: Dehydration, Electrolyte depletion, Hyperemesis gravidarum Condition: Stable Record reviewed to determine appropriate education?: Yes Instructions: ED Nausea Vomiting Prescriptions: Prochlorperazine [Compazine] 5 mg PO Q6H PRN #30 tablet PRN Reason: Nausea / Vomiting Prochlorperazine Supp [Compazine Supp] 25 mg NJ Q6H PRN #15 supp PRN Reason: Nausea / Vomiting Magnesium Oxide [Mag Ox] 400 mg PO DAILY #30 tablet Comments: Continue with usual medications. Small frequent fluids and bland food. Acid reducing medicine such as famotidine is okay in . Use this daily if you are not already taking something like that. I wrote a prescription for Compazine both suppository and orally. 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 They are not extremely low and I think just dietary foods will be adequate without a particular supplement. In particular potassium supplements can be a little harder on the stomach. A magnesium oral supplement is reasonable and usually well-tolerated. Forms: PCP List Discharge Date/Time: 11/22/23 12:51
[2023-11-22 09:26] LABS: ALBUMIN 3.5 g/dL (3.2-5.5); ALBUMIN/GLOBULIN RATIO 1.2 (1.0-2.2); BILIRUBIN,TOTAL 0.3 mg/dL (0.2-1.0); CREATININE 0.6 mg/dL (0.6-1.3); POTASSIUM 3.2 mmol/L (3.5-4.5); TOTAL PROTEIN 6.4 g/dL (6.4-8.9)
[2023-11-22 09:44] LABS: MAGNESIUM 1.5 mg/dL (1.7-2.3); PHOSPHORUS 2.3 mg/dL (2.5-5.0)
[2023-11-22] MEDS: SODIUM CHLORIDE 0.9% 1,000 ML IV STA (09:56)
[2023-11-22] MEDS: PROCHLORPERAZINE 10 MG/2 ML VIAL IVP STA (09:56)
[2023-11-22] MEDS: DEXAMETHASONE 10 MG/ML VIAL IVP STA (09:56)
[2023-11-22] MEDS: FAMOTIDINE 20 MG/2 ML VIAL IVP STA (09:57)
[2023-11-22] MEDS: MAGNESIUM SULFATE 2 GRAM 2 GM/50 ML BAG IV ONE (11:13)
[2023-11-22 11:26] LABS: BILIRUBIN,URINE NEGATIVE (NEGATIVE); GLUCOSE, URINE (UA) NEGATIVE (NEGATIVE); KETONES,URINE (UA) >=80 mg/dL (NEGATIVE); LEUKOCYTE ESTERASE, URINE TRACE (NEGATIVE); NITRITE,URINE NEGATIVE (NEGATIVE); OCCULT BLOOD,URINE NEGATIVE (NEGATIVE); PH,URINE 8.5 PH (5.0-7.5); PROTEIN,URINE 100 mg/dL (NEGATIVE); UROBILINOGEN,URINE 0.2 (NORMAL) E.U./dL (NORMAL)
[2023-11-22 11:27] LABS: CLARITY,URINE CLOUDY (CLEAR)
[2023-11-22 11:44] LABS: AMORPHOUS SEDIMENT,UR Marked /LPF; BACTERIA,URINE Many /HPF (None Seen); MUCUS,URINE Marked Strands; RBC,URINE 0-5 /HPF (0-5); SQUAMOUS EPITHELIAL CELL,UR MANY Squamous (<= Few)
[2023-11-22] MEDS: LACTATED RINGERS 1,000 ML IV STA (11:58)
[2023-11-22 12:26] VITALS: BP 137/93
== END 2023-11-22 12:51 | disposition home or self-care (01) ==
LOC: ED 08:36
DX: O21.1 Hyperemesis gravidarum with metabolic disturbance (principal); Z3A.22 22 weeks gestation of pregnancy; E86.0 Dehydration; Z79.899 Other long term (current) drug therapy
CPT/HCPCS: 36415; 80053; 81001; 83690; 83735; 84100; 85025; 96365; 96375; 99283; 99285; J7120; 81003; 87086